=== PATIENT | male | born 1990 | race Caucasian/White ===

== ENCOUNTER 2024-03-15 07:24 | Emergency (ER) | payer BC, SELFPAY ==
[2024-03-15 07:26] VITALS: BP 136/88
--- NOTE | 2024-03-15 08:54 | ED.GENMED ---
History of Present Illness
General
Chief Complaint: Musculo-Skeletal Complaint
Time Seen by Provider: 03/15/24 07:43
Travel History
Have you had any contact with someone who has COVID-19?: No
Do you have any symptoms of coronavirus? Fever > 100 degrees, chills, cough, shortness of breath, sore throat, loss of taste or smell, muscle aches, or headache?: No
History of Present Illness
History of Present Illness:
33-year-old male with poorly controlled type 1 insulin-dependent diabetes presents to the emergency department for evaluation of burning discomfort to the left thigh and popliteal region ongoing for the past week. He states the skin is
hypersensitive to touch. Does report left-sided low back pain as well. Pain increases when ambulating but denies any leg weakness. No loss of bladder or bowel function. He does note that his insulin pump broke recently and he has been using
Lantus however his glucose has been generally uncontrolled. Last A1c was greater than 14
Past History
Past History
ED Past Medical History: Asthma, IDDM and Psychiatric
ED Past Surgical History: Other (Umbilical hernia repair, pilonidal cyst removal)
Social History
Tobacco: Vaping
Alcohol: Occasional
Drug: Marijuana
Personal: Single
Living: with family
Employment: Employed (Grocery store)
Family History
Family History: Diabetes
Review of Systems
Review of Systems
Allergies reviewed?: Yes
All Other Systems: ROS reviewed and negative except as documented in HPI and ROS
Phy Exam
Physical Exam
Physical Exam:
GEN: Well appearing, NAD, WDWN
HEENT: Oral mucosa moist, no scleral icterus
Cardiac: Regular rate
Lung: No respiratory distress, no tachypnea
MSK: No gross deformity or injuries. Mild lumbar paraspinous tenderness on the left
Skin: Good color, no pallor or jaundice, no rashes
Neuro: AO x3, moves all extremities freely. Bilateral lower extremity strength is 5 out of 5 in all perdue and symmetric, patellar reflexes 2+ bilaterally
Psych: Calm, cooperative
Course
Orders/Labs/Results
Orders:
Orders
03/15/24 09:07
Complete Blood Count/With Diff Urgent
Comprehensive Metabolic Panel Urgent
Urinalysis Reflex To Culture Urgent
Date Specimen was Collected: 03/15/24
Time Specimen was Collected: 08:57
03/15/24 09:54
Ketorolac [Toradol] 15 mg IV NOW STA
Abnormal Lab Results
03/15/24
09:07
MCH 31.3 H pg
(27.0-31.0)
MPV 11.2 H fL
(7.4-10.4)
Sodium 134 L mmol/L
(135-145)
Creatinine 0.6 L mg/dL
(0.7-1.3)
Glucose 333 H mg/dl
(70-99)
Total Protein 6.2 L g/dl
(6.3-8.2)
Urine Ketones Trace A
(Negative)
Urine Glucose 3+ A
(Negative)
03/15/24 09:07
03/15/24 09:07
Vital Signs
Initial and Last Documented VS:
Initial Vital Signs
Temp Pulse Resp BP Pulse Ox
98.5 F 85 18 136/88 100
03/15/24 07:26 03/15/24 07:26 03/15/24 07:26 03/15/24 07:26 03/15/24 07:26
Last Documented Vital Signs
Temp Pulse Resp BP Pulse Ox
98.5 F 72 18 123/85 99
03/15/24 07:26 03/15/24 10:43 03/15/24 10:43 03/15/24 10:43 03/15/24 10:43
MDM/Problems Addressed
MDM/Problems Addressed:
Patient's labs are reassuring, no evidence for DKA or HHS. He does have hyperglycemia secondary to medication noncompliance however compliance with his insulin regimen is encouraged. His symptoms are most likely indicative of lumbar radiculopathy,
doubt it is correlating to his diabetes given that it is not a distal peripheral neuropathy. Discussed supportive care and advised close primary care follow-up
*Critical Care Note
Total Time (30-74mins, 75-104mins- exclusive of procedures): Not Applicable
ED Attending Note
-
Portions of this chart may have been created with voice recognition software.� Occasional wrong word or��sound alike� substitutions may have occurred due to the inherent limitations of voice recognition software.
Discharge Plan
Departure
Patient Disposition: Home (Routine Discharge)
Date of Disposition: 03/15/24
Time of Disposition: 09:55
Patient with high blood pressure during this ER visit?: No
Discharge Problem:
Acute lumbar radiculopathy
Instructions: Radiculopathy (DC)
Prescriptions:
New
diclofenac sodium 75 mg tablet,delayed release (DR/EC)
75 mg PO BID Qty: 20 0RF
gabapentin 300 mg capsule
300 mg PO TID Qty: 30 0RF
No Action
insulin aspart U-100 [Novolog FlexPen U-100 Insulin] 100 unit/mL (3 mL) insulin pen
0 sliding scale dose SC .VIA PUMP
Referrals:
Giorgi Ayala DO [Family Provider] -
Interventions
Interventions:
*Risk Screen - Suicide Last Done: 03/15/24 07:26
*General Assessment Last Done: 03/15/24 07:26
*Neglect/Abuse Screening Last Done: 03/15/24 07:26
ED- Fall Risk Assessment Last Done: 03/15/24 08:02
*ED COVID-19 Vaccine History Last Done: 03/15/24 10:50
*Nursing Disposition Last Done: 03/15/24 10:50
ED-Musculoskeletal Assessment Last Done: 03/15/24 08:02
Discharge Date and Time
Discharge Date/Time: 03/15/24 10:50
Print Language: UPPER SORBIAN
[2024-03-15 09:16] LABS: % Basophils 0.8 % (0-2); % Eosinophils 1.6 % (0-6); % Immature Granulocytes 0.3 % (0-0.5); % Lymphocytes 27.7 % (20.5-51.1); % Monocytes 6.7 % (1.7-9.3); % Neutrophils 62.9 % (42.2-75.2); Absolute Basophils 0.1 10^3/uL (0-0.2); Absolute Eosinophils 0.1 10^3/uL (0-0.7); Absolute Monocytes 0.5 10^3/uL (0.1-0.6); Absolute Neutrophils 4.6 10^3/uL (1.4-6.5); Hemoglobin 15.8 g/dL (13.0-18.0); Mean Corp Hgb Conc. 36.7 g/dL (33.0-37.0); Mean Corpuscular Hgb 31.3 pg (27.0-31.0); Mean Corpuscular Volume 85.3 fL (80.0-94.0); Mean Platelet Volume 11.2 fL (7.4-10.4); Nucleated Red Blood Cells % 0 % (-); Platelet Count 196 10^3/uL (130-400); Red Blood Cell Count 5.04 10^6/uL (4.70-6.10); Red Cell Dist. Width 11.7 % (11.5-14.5); White Blood Cell Count 7.3 10^3/uL (4.8-10.8)
[2024-03-15 09:23] LABS: Urine Albumin Negative (Neg - Trace); Urine Bilirubin Negative (Negative); Urine Character Clear (Clear); Urine Color Yellow; Urine Glucose 3+ (Negative); Urine Ketone Trace (Negative); Urine Leukocyte Negative (Negative); Urine Nitrite Negative (Negative); Urine Occult Blood Negative (Negative); Urine Urobilinogen Negative (Neg - 1+)
[2024-03-15 09:42] LABS: ALT (SGPT) 33 U/L (0-50); AST (SGOT) 28 U/L (17-59); Albumin 3.9 g/dl (3.5-5.0); Alkaline Phosphatase 70 U/L (38-126); Blood Urea Nitrogen 12 mg/dl (9-20); Calcium 9.1 mg/dl (8.4-10.2); Carbon Dioxide 29 mmol/L (22-30); Chloride 98 mmol/L (98-107); Glucose 333 mg/dl (70-99); Potassium 4.6 mmol/L (3.5-5.1); Sodium 134 mmol/L (135-145); Total Bilirubin 0.6 mg/dl (0.2-1.3); Total Protein 6.2 g/dl (6.3-8.2); eGFR > 60.00
[2024-03-15 10:19] VITALS: BP 131/83
[2024-03-15] MEDS: TORADOL 15 MG IV (10:20)
[2024-03-15 10:43] VITALS: BP 123/85
== END 2024-03-15 10:50 | disposition home or self-care (01) ==
LOC: EMR 07:24
PROVIDERS: Physician Assistant; EMERGENCY PHYSICIAN Emergency Medicine; FAMILY PHYSICIAN Family Medicine
DX: M54.16 Radiculopathy, lumbar region (principal); E10.65 Type 1 diabetes mellitus with hyperglycemia; J45.909 Unspecified asthma, uncomplicated; F17.290 Nicotine dependence, other tobacco product, uncomplicated; Z83.3 Family history of diabetes mellitus; Z91.148 Patient's other noncompliance with medication regimen for other reason
CPT/HCPCS: 99283; 96374; 80053; 81003; 85025

== ENCOUNTER 2024-06-01 19:20 | Emergency (ER) | payer OTHER, SELFPAY ==
[2024-06-01 19:23] VITALS: BP 171/100
[2024-06-01 19:55] LABS: Urine Albumin Negative (Neg - Trace); Urine Bilirubin Negative (Negative); Urine Character Clear (Clear); Urine Color Yellow; Urine Glucose 3+ (Negative); Urine Ketone Negative (Negative); Urine Leukocyte Negative (Negative); Urine Nitrite Negative (Negative); Urine Occult Blood Negative (Negative); Urine Specific Gravity 1.015 (<1.030); Urine Urobilinogen Negative (Neg - 1+); Urine pH 6.5 (5.0-9.0)
--- NOTE | 2024-06-01 20:01 | ED.GENMED ---
History of Present Illness
General
Chief Complaint: Urinary Symptoms
Source: patient
Exam Limitations: none
Time Seen by Provider: 06/01/24 19:36
Nursing documentation reviewed up to this point in time: agreed with
History of Present Illness
History of Present Illness:
pt is a 33 y/o M with IDDM
poorly compliant
went to his paramedic instructor in [place] today who was not happy with pt's numbers
BG was high in the office
pt has not been taking his tresiba - sys it was in his hot car and he thinks it went bad so he really hasn't used it
he is supposed to use between 20-24 units and then use novolog for short acting but he ran out
he is supposed to get a new insulin pump
the paramedic instructor put on a dex com today
the bg went down to 300 but then he drank soda and it is up to 'high'
he says that about 6 mo ago he had a UTI
burning frequency
got an abx prescription but was noncompliant
taking one here and there
symptosm never really went away
was also tested for STI and doesn't think he had STI but isn't sure
pt says that the paramedic instructor develoed a new plan for his sugars
but in the meantime wante dhim to come to the ER because he was worried about the urinary symptoms getting worse and causing kidney problems
pt apparently was supposed to go to [place] but he waited there in the waiting room for a while and left and came here instead
pt has been here before with similar issues, noncompliance and high sugars
he has not had fever, chills, vomiting, abdomianl pain, diarrhea, weakness
Past History
Past History
ED Past Medical History: Asthma, IDDM and Psychiatric
ED Past Surgical History: Other (Umbilical hernia repair, pilonidal cyst removal)
Social History
Tobacco: Vaping
Alcohol: Occasional
Drug: Marijuana
Personal: Single
Living: with family
Employment: Employed (Grocery store)
Family History
Family History: Diabetes
Review of Systems
Review of Systems
Allergies reviewed?: Yes
All Other Systems: Not applicable
Phy Exam
Physical Exam
Physical Exam:
GENERAL: Alert , in no apparent distress,
EYE: pupils equal and reactive
NECK: Supple
ENT: o/p clr, mmm.
CARDIAC: Regular rate and rhythm .
LUNGS: Clear breath sounds bilaterally, no acute respiratory distress, no wheezes/rales/rhonchi
ABDOMEN: Soft, without focal tenderness, no r/g, no cvat, normal bowel sounds
: normal inspection, no rash, no susan
NEUROLOGICAL: Alert and oriented, no focal neuro deficits
SKIN: Warm and dry, skin intact.
MUSCULOSKELETAL: No edema, well perfused. neg melissa's sign
PSYCH: Anxious
Course
Orders/Labs/Results
Orders:
Orders
06/01/24 19:48
Urinalysis Reflex To Culture Urgent
Date Specimen was Collected: 06/01/24
Time Specimen was Collected: 19:47
Chlamydia/GC by PCR Urgent
MOLLY Source: U
Specimen Description:
Source:: URINE
Date Specimen was Collected: 06/01/24
Time Specimen was Collected: 19:47
Comment: ADD ON
06/01/24 19:57
Add On- LAB Urgent
Tests Added?: CHLAMYDIA/GONORRHEA URINE
0.9% Sodium Chloride 1000 ml [Nss] 1,000 ml IV BOLUS
06/01/24 20:06
BHB [B-Hydroxybutyrate] Urgent
Complete Blood Count/With Diff Urgent
Comprehensive Metabolic Panel Urgent
Venous Blood Gas Urgent
%Oxygen/Room Air: 21
06/01/24 20:43
0.9% Sodium Chloride 1000 ml [Nss] 1,000 ml IV BOLUS
06/01/24 22:06
Insulin Human Regular [Novolin R] 100 units .ROUTE .STK-MED ONE
Insulin Human Regular [Novolin R] 4 units SC NOW STA
Abnormal Lab Results
06/01/24 06/01/24 06/01/24
19:48 20:06 21:54
MCH 31.7 H pg
(27.0-31.0)
MCHC 37.3 H g/dL
(33.0-37.0)
MPV 12.1 H fL
(7.4-10.4)
VBG pCO2 49 H mmHg
(35-48)
VBG HCO3 29.7 H mmol/L
(22-27)
Sodium 131 L mmol/L
(135-145)
Chloride 94 L mmol/L
(98-107)
Creatinine 0.6 L mg/dL
(0.7-1.3)
Glucose 447 H mg/dl
(70-99)
Urine Glucose 3+ A
(Negative)
POC Glucose 266 H mg/dl
(70-99)
06/01/24 20:06
06/01/24 20:06
Vital Signs
Initial and Last Documented VS:
Initial Vital Signs
Temp Pulse Resp BP Pulse Ox
97.6 F 91 16 171/100 100
06/01/24 19:23 06/01/24 19:23 06/01/24 19:23 06/01/24 19:23 06/01/24 19:23
Last Documented Vital Signs
Temp Pulse Resp BP Pulse Ox
97.6 F 91 16 149/96 98
06/01/24 19:23 06/01/24 19:23 06/01/24 19:23 06/01/24 22:13 06/01/24 22:15
MDM/Problems Addressed
Differential Diagnosis Includes:
dka, hyperglcyemia, sti, uti
MDM/Problems Addressed:
[age]y/o M with IDDM
poorly compliant
currently not using insulin like he should
saw endocrinoogist today who is switching pt back to pump and changing insulin but pt was instructed to come to the ER to get urine checked
his bg was high earlier and came down to 300 but then went back up
he has been having c/o urinary frequency and dysuria intermittently x 6 mo after he was dx with UTI
pt was treated with unknown abx and he was thinnking that it never cleared up
he also goot tested for sti but doesn't know results
his bg was 447, AG is 6.5
bhb is normal
vbg normal
given 2 L NSS and rechecked bg 260
will give a dose of sub cutaneous regular insulin to last for the ngith since he will not be getting to pharmacy
d/w ed attending.
d/c home
ua neg
offered STI treatment but pt prefers to wait
*Critical Care Note
Total Time (30-74mins, 75-104mins- exclusive of procedures): Not Applicable
ED Attending Note
-
Portions of this chart may have been created with voice recognition software.� Occasional wrong word or��sound alike� substitutions may have occurred due to the inherent limitations of voice recognition software.
Discharge Plan
Departure
Patient Disposition: Home (Routine Discharge)
Date of Disposition: 06/01/24
Time of Disposition: 22:01
Patient with high blood pressure during this ER visit?: Yes
Covid-19: Not Applicable
Discharge Problem:
Noncompliance with diabetes treatment, Diabetes
Instructions: Type 1 diabetes, BLOOD PRESSURE
Prescriptions:
No Action
diclofenac sodium 75 mg tablet,delayed release (DR/EC)
75 mg PO BID Qty: 20 0RF
gabapentin 300 mg capsule
300 mg PO TID Qty: 30 0RF
Referrals:
NONE,* [Family Provider] -
Activity Restrictions/Additional Instructions:
YOU WERE GIVEN A DOSE OF REGULAR INSULIN TONIGHT THAT WILL LAST THROUGH MOST OF THE NIGHT
MAKE SURE NOT TO USE ANY INSULIN WIHTOUT CHECKING YOUR DEXCOM
YOU NEED TO BE MROE COMPLIANT WITH YOUR INSULIN
YOUR KIDNEY FUNCTION IS NORMAL
YOUR URINE HAS NO SIGN OF INFECTION
IF YOUR STD URINE COMES BACK POSITIVE, WE WILL CALL YOU
RETURN FOR ANY CONCERNS.
Interventions
Interventions:
*Risk Screen - Suicide Last Done: 06/01/24 19:23
*General Assessment Last Done: 06/01/24 19:23
*Neglect/Abuse Screening Last Done: 06/01/24 19:23
ED- Fall Risk Assessment Last Done: 06/01/24 20:12
*Nursing Disposition Last Done: 06/01/24 22:47
ED-Male Genitourinary Assessment Last Done: 06/01/24 20:12
Discharge Date and Time
Discharge Date/Time: 06/01/24 22:47
Print Language: BRAZILIAN
[2024-06-01] MEDS: NSS 1000 IV ×2 (20:07→20:46)
[2024-06-01 20:09] VITALS: BP 136/96
[2024-06-01 20:12] VITALS: BMI 25.9
[2024-06-01 20:15] LABS: Venous Blood Gas B.E. 3.6 mmol/L (-4 to +4); Venous Blood Gas HCO3 29.7 mmol/L (22-27); Venous Blood Gas O2 Sat % 82.8 %; Venous Blood Gas pCO2 49 mmHg (35-48); Venous Blood Gas pH 7.39 (7.32-7.43); Venous Blood Gas pO2 49 mmHg (30-50)
[2024-06-01 20:22] LABS: % Basophils 0.7 % (0-2); % Eosinophils 0.9 % (0-6); % Immature Granulocytes 0.3 % (0-0.5); % Lymphocytes 32.4 % (20.5-51.1); % Monocytes 7.6 % (1.7-9.3); % Neutrophils 58.1 % (42.2-75.2); Absolute Basophils 0.1 10^3/uL (0-0.2); Absolute Eosinophils 0.1 10^3/uL (0-0.7); Absolute Lymphocytes 2.3 10^3/uL (1.2-3.4); Absolute Monocytes 0.5 10^3/uL (0.1-0.6); Absolute Neutrophils 4.1 10^3/uL (1.4-6.5); Hematocrit 42.6 % (39.0-52.0); Hemoglobin 15.9 g/dL (13.0-18.0); Mean Corp Hgb Conc. 37.3 g/dL (33.0-37.0); Mean Corpuscular Hgb 31.7 pg (27.0-31.0); Mean Platelet Volume 12.1 fL (7.4-10.4); Nucleated Red Blood Cells % 0 % (-); Platelet Count 201 10^3/uL (130-400); Red Blood Cell Count 5.01 10^6/uL (4.70-6.10); Red Cell Dist. Width 11.5 % (11.5-14.5); White Blood Cell Count 6.9 10^3/uL (4.8-10.8)
[2024-06-01 20:36] LABS: ALT (SGPT) 28 U/L (0-50); AST (SGOT) 26 U/L (17-59); Albumin 4.6 g/dl (3.5-5.0); Alkaline Phosphatase 76 U/L (38-126); Blood Urea Nitrogen 17 mg/dl (9-20); Calcium 9.7 mg/dl (8.4-10.2); Carbon Dioxide 29 mmol/L (22-30); Chloride 94 mmol/L (98-107); Estimated Creatinine Clearance > 125 ml/min; Glucose 447 mg/dl (70-99); Potassium 4.2 mmol/L (3.5-5.1); Sodium 131 mmol/L (135-145); Total Bilirubin 0.7 mg/dl (0.2-1.3); Total Protein 6.7 g/dl (6.3-8.2); eGFR > 60.00
[2024-06-01 21:00] VITALS: BP 142/74
[2024-06-01 21:56] LABS: Glucose - Point of Care 266 mg/dl (70-99)
[2024-06-01 22:00] VITALS: BP 151/95
[2024-06-01] MEDS: NOVOLIN R 4 UNITS SC (22:09)
[2024-06-01 22:13] VITALS: BP 149/96
== END 2024-06-01 22:47 | disposition home or self-care (01) ==
LOC: EMR 19:20
PROVIDERS: Physician Assistant; EMERGENCY PHYSICIAN Emergency Medicine
DX: E11.65 Type 2 diabetes mellitus with hyperglycemia (principal); Z91.199 Patient's noncompliance with other medical treatment and regimen due to unspecified reason; R03.0 Elevated blood-pressure reading, without diagnosis of hypertension; F17.290 Nicotine dependence, other tobacco product, uncomplicated
CPT/HCPCS: 96360; 80053; 81003; 82010; 82805; 82962; 85025; 87491; 87591; 96361; 96372; 99284

== ENCOUNTER 2024-06-19 05:14 | Emergency (ER) | payer OTHER, SELFPAY ==
[2024-06-19 05:15] VITALS: BP 152/102
[2024-06-19 05:39] LABS: Glucose - Point of Care 326 mg/dl (70-99)
[2024-06-19 05:45] VITALS: BMI 24.9
[2024-06-19 05:50] LABS: COVID-19 Antigen Positive (Negative)
--- NOTE | 2024-06-19 06:16 | ED.GENMED ---
History of Present Illness
General
Chief Complaint: Blood Sugar Problem
Source: patient
Exam Limitations: none
Time Seen by Provider: 06/19/24 06:08
Nursing documentation reviewed up to this point in time: agreed with
History of Present Illness
History of Present Illness:
Patient with history of insulin-dependent diabetes, presents to ED secondary to persistently elevated blood sugar over the past 2 days, along with scratchy throat, body ache, and intermittent cough. Denies abdominal pain. Denies nausea, vomiting,
or diarrhea. Denies rash. Denies headache. Patient states that his father had been ill recently. Patient is concerned that he may be in DKA.
Past History
Past History
ED Past Medical History: Asthma, IDDM and Psychiatric
ED Past Surgical History: Other (Umbilical hernia repair, pilonidal cyst removal)
Social History
Tobacco: Vaping
Alcohol: Occasional
Drug: Marijuana
Personal: Single
Living: with family
Employment: Employed (Grocery store)
Family History
Family History: Diabetes
Review of Systems
Review of Systems
Allergies reviewed?: Yes
All Other Systems: ROS reviewed and negative except as documented in HPI and ROS
Constitutional: Reports chills
EENT: Reports sore throat and runny nose
Respiratory: Reports cough; Denies trouble breathing
Cardiac: Reports no symptoms
ABD/GI: Reports no symptoms; Denies vomiting or diarrhea
: Reports no symptoms
Musculoskeletal: Reports muscle pain
Skin: Reports no symptoms
Neurological: Reports no symptoms
Phy Exam
Physical Exam
Physical Exam:
Physical Exam
General: mild distress, not acutely ill. afebrile
Head: nc/at. eomi
Neck: supple. no meningeal signs. normal posterior pharynx
Heart: tachycardic, no murmur. equal radial pulses.
Lungs: no acute respiratory distress. clear bilaterally
Abdomen: normal bowel sounds. not tender.
Neuro: alert and oriented. no focal neurological deficits
Skin: no rash
Psychiatric: well kept. interactive and cooperative
Extremities: no edema. no calf tenderness.
Course
Orders/Labs/Results
Orders:
Orders
06/19/24 05:35
COVID-19 Antigen Urgent
Source: Nasal Swab
Influenza A+B Rapid Molecular Urgent
MOLLY Source: Nasal Swab
Specimen Description:
Date Specimen was Collected: 06/19/24
Time Specimen was Collected: 05:33
06/19/24 06:09
Bedside Glucose- Treatment Q1H
IV Insert/Care/Rem.- Treatment PRN
0.9% Sodium Chloride 1000 ml [Nss] 1,000 ml IV BOLUS
06/19/24 06:16
Acetaminophen [Tylenol] 650 mg PO NOW STA
Ketorolac [Toradol] 15 mg IV NOW STA
06/19/24 06:30
Acetone [B-Hydroxybutyrate] Urgent
Basic Metabolic Panel Q2H
Complete Blood Count/With Diff Urgent
Comprehensive Metabolic Panel Urgent
Magnesium Urgent
Venous Blood Gas Urgent
%Oxygen/Room Air: 99
06/19/24 07:13
Magnesium Oxide 500 mg PO NOW STA
06/19/24 07:14
0.9% Sodium Chloride 1000 ml [Nss] 1,000 ml IV BOLUS
Insulin Human Regular [Novolin R] 10 units IV NOW STA
Pantoprazole [Protonix IV] 40 mg IV NOW STA
Abnormal Lab Results
06/19/24 06/19/24 06/19/24
05:35 05:38 06:30
MCH 32.0 H pg
(27.0-31.0)
MCHC 37.3 H g/dL
(33.0-37.0)
RDW 11.1 L %
(11.5-14.5)
MPV 12.3 H fL
(7.4-10.4)
Absolute Lymphs (auto) 0.9 L 10^3/uL
(1.2-3.4)
Absolute Monos (auto) 0.8 H 10^3/uL
(0.1-0.6)
Lymphocytes % 15.5 L %
(20.5-51.1)
Monocytes % 14.1 H %
(1.7-9.3)
VBG pCO2 50 H mmHg
(35-48)
VBG HCO3 29.6 H mmol/L
(22-27)
Sodium 128 L mmol/L
(135-145)
Chloride 93 L mmol/L
(98-107)
Glucose 348 H mg/dl
(70-99)
Magnesium 1.5 L mg/dl
(1.6-2.3)
Total Protein 6.2 L g/dl
(6.3-8.2)
SARS-CoV-2 Antigen Positive A
(Negative)
POC Glucose 326 H mg/dl
(70-99)
06/19/24 06/19/24 06/19/24
08:04 09:27 11:02
MCH
MCHC
RDW
MPV
Absolute Lymphs (auto)
Absolute Monos (auto)
Lymphocytes %
Monocytes %
VBG pCO2
VBG HCO3
Sodium
Chloride
Glucose
Magnesium
Total Protein
SARS-CoV-2 Antigen
POC Glucose 294 H mg/dl 332 H mg/dl 230 H mg/dl
(70-99) (70-99) (70-99)
06/19/24 06:30
06/19/24 10:15
Vital Signs
Initial and Last Documented VS:
Initial Vital Signs
Temp Pulse Resp BP Pulse Ox
100.1 F 110 22 152/102 100
06/19/24 05:15 06/19/24 05:15 06/19/24 05:15 06/19/24 05:15 06/19/24 05:15
Last Documented Vital Signs
Temp Pulse Resp BP Pulse Ox
100.1 F 110 22 110/64 96
06/19/24 05:15 06/19/24 05:15 06/19/24 05:15 06/19/24 10:00 06/19/24 10:45
MDM/Problems Addressed
MDM/Problems Addressed:
COVID-19 positive. Patient reports significant improvement in symptoms after treatment. Blood work does not indicate DKA. Blood sugar improved after treatment. Discussed treatment options via Paxlovid with the patient. Patient given
prescription along with information about Paxlovid and side effects. Patient will determine whether or not he wants to take medication upon discharge. Advised continue hydration at home along with PCP follow-up as an outpatient.
*Critical Care Note
Total Time (30-74mins, 75-104mins- exclusive of procedures): Not Applicable
ED Attending Note
-
Portions of this chart may have been created with voice recognition software.� Occasional wrong word or��sound alike� substitutions may have occurred due to the inherent limitations of voice recognition software.
Discharge Plan
Departure
Patient Disposition: Home (Routine Discharge)
Date of Disposition: 06/19/24
Time of Disposition: 11:40
Patient with high blood pressure during this ER visit?: Yes
Discharge Problem:
COVID-19, Hyperglycemia
Instructions: COVID-19 ED, High Blood Sugar, Adult ED, Nirmatrelvir and Ritonavir
Prescriptions:
New
Paxlovid 300 mg (150 mg x 2)-100 mg tablets,dose pack
See Rx Instructions .ROUTE .COMPLEX Qty: 30 0RF
Rx Instructions:
take TWO 150 mg tablets of nirmatrelvir with ONE 100 mg tablet of ritonavir twice daily for 5 days
No Action
diclofenac sodium 75 mg tablet,delayed release (DR/EC)
75 mg PO BID Qty: 20 0RF
gabapentin 300 mg capsule
300 mg PO TID Qty: 30 0RF
Referrals:
Reji Lambert MD [Family Provider] -
Activity Restrictions/Additional Instructions:
As discussed, please follow-up with your primary care physician and/or clip loading machine adjuster with any further concerns. Please read provided literature regarding Paxlovid. Strongly consider taking Paxlovid, as it may lessen your symptoms as well as
duration.
Interventions
Interventions:
*Risk Screen - Suicide Last Done: 06/19/24 05:15
*General Assessment Last Done: 06/19/24 05:49
*Neglect/Abuse Screening Last Done: 06/19/24 05:15
ED- Fall Risk Assessment Last Done: 06/19/24 05:53
*ED COVID-19 Vaccine History Last Done: 06/19/24 05:45
*Nursing Disposition Last Done: 06/19/24 12:00
ED- Neurological Assessment Last Done: 06/19/24 05:43
ED- Pulmonary Assessment Last Done: 06/19/24 05:45
Discharge Date and Time
Discharge Date/Time: 06/19/24 12:02
Print Language: PASHTO
[2024-06-19] MEDS: NSS 1000 IV ×2 (06:35→08:15)
[2024-06-19] MEDS: TORADOL 15 MG IV (06:35)
[2024-06-19] MEDS: TYLENOL 650 MG PO (06:36)
[2024-06-19 06:51] VITALS: BP 128/78
[2024-06-19 06:58] LABS: % Basophils 0.7 % (0-2); % Eosinophils 0.5 % (0-6); % Immature Granulocytes 0.2 % (0-0.5); % Lymphocytes 15.5 % (20.5-51.1); % Monocytes 14.1 % (1.7-9.3); Absolute Lymphocytes 0.9 10^3/uL (1.2-3.4); Absolute Monocytes 0.8 10^3/uL (0.1-0.6); Absolute Neutrophils 4.1 10^3/uL (1.4-6.5); Hematocrit 41.5 % (39.0-52.0); Hemoglobin 15.5 g/dL (13.0-18.0); Mean Corp Hgb Conc. 37.3 g/dL (33.0-37.0); Mean Corpuscular Volume 85.7 fL (80.0-94.0); Mean Platelet Volume 12.3 fL (7.4-10.4); Nucleated Red Blood Cells % 0 % (-); Platelet Count 149 10^3/uL (130-400); Red Blood Cell Count 4.84 10^6/uL (4.70-6.10); Red Cell Dist. Width 11.1 % (11.5-14.5); White Blood Cell Count 5.9 10^3/uL (4.8-10.8)
[2024-06-19 07:01] VITALS: BP 131/73
[2024-06-19 07:08] LABS: Venous Blood Gas B.E. 3.3 mmol/L (-4 to +4); Venous Blood Gas HCO3 29.6 mmol/L (22-27); Venous Blood Gas O2 Sat % 80.8 %; Venous Blood Gas pCO2 50 mmHg (35-48); Venous Blood Gas pH 7.38 (7.32-7.43); Venous Blood Gas pO2 47 mmHg (30-50)
[2024-06-19 07:11] LABS: ALT (SGPT) 25 U/L (0-50); AST (SGOT) 22 U/L (17-59); Albumin 4.2 g/dl (3.5-5.0); Alkaline Phosphatase 75 U/L (38-126); Blood Urea Nitrogen 13 mg/dl (9-20); Calcium 9.4 mg/dl (8.4-10.2); Carbon Dioxide 27 mmol/L (22-30); Chloride 93 mmol/L (98-107); Estimated Creatinine Clearance 114 ml/min; Glucose 348 mg/dl (70-99); Magnesium 1.5 mg/dl (1.6-2.3); Potassium 4.6 mmol/L (3.5-5.1); Sodium 128 mmol/L (135-145); Total Bilirubin 0.8 mg/dl (0.2-1.3); Total Protein 6.2 g/dl (6.3-8.2); eGFR > 60.00
[2024-06-19 07:17] LABS: B-Hydroxybutyrate 0.24 mmol/L (0.02-0.27)
[2024-06-19 08:00] VITALS: BP 119/72
[2024-06-19 08:05] LABS: Glucose - Point of Care 294 mg/dl (70-99)
[2024-06-19] MEDS: PROTONIX IV 40 MG IV (08:09)
[2024-06-19] MEDS: NOVOLIN R 10 UNITS IV (08:09)
[2024-06-19] MEDS: MAGNESIUM OXIDE 500 MG PO (08:09)
[2024-06-19 09:00] VITALS: BP 98/51
[2024-06-19 09:28] LABS: Glucose - Point of Care 332 mg/dl (70-99)
[2024-06-19 10:00] VITALS: BP 110/64
[2024-06-19 11:04] LABS: Glucose - Point of Care 230 mg/dl (70-99)
== END 2024-06-19 12:02 | disposition home or self-care (01) ==
LOC: EMR 05:14
PROVIDERS: Emergency Medicine; EMERGENCY PHYSICIAN Emergency Medicine; FAMILY PHYSICIAN Internal Medicine Endocrinology, Diabetes & Metabolism
DX: U07.1 COVID-19 (principal); E11.65 Type 2 diabetes mellitus with hyperglycemia; F17.290 Nicotine dependence, other tobacco product, uncomplicated
CPT/HCPCS: 99284; 96374; 96375 ×2; 96361; 80048; 80053; 82010; 82805; 82962; 83735; 85025; 87502; 87811

== ENCOUNTER 2024-07-22 19:40 | Emergency (ER) | payer OTHER, SELFPAY ==
[2024-07-22 19:41] VITALS: BP 141/89
[2024-07-22 19:55] LABS: Glucose - Point of Care 260 mg/dl (70-99)
[2024-07-22 20:05] VITALS: BMI 25.6
--- NOTE | 2024-07-22 20:19 | ED.GENMED ---
History of Present Illness
General
Chief Complaint: Facial Problem
Source: patient
Exam Limitations: none
Time Seen by Provider: 07/22/24 20:11
Nursing documentation reviewed up to this point in time: agreed with
History of Present Illness
History of Present Illness:
34 yo male presents emergency department complaining of left facial numbness is about 5 PM. He denies any focal weakness. He states the left side his face feels heavy. He is diabetic with blood sugars in the 300s and poorly controlled. He has a
history of neuropathy.
Past History
Past History
ED Past Medical History: Asthma, IDDM and Psychiatric
ED Past Surgical History: Other (Umbilical hernia repair, pilonidal cyst removal)
Social History
Tobacco: Vaping
Alcohol: Occasional
Drug: Marijuana
Personal: Single
Living: with family
Employment: Employed (Grocery store)
Family History
Family History: Diabetes
Review of Systems
Review of Systems
Allergies reviewed?: Yes
All Other Systems: Not applicable
Constitutional: Reports no symptoms
EENT: Reports no symptoms
Respiratory: Reports no symptoms
Cardiac: Reports chest pain (While lifting weights)
ABD/GI: Reports no symptoms
: Reports no symptoms
Musculoskeletal: Reports no symptoms
Skin: Reports no symptoms
Neurological: Reports no symptoms
Endocrine: Reports no symptoms
Hematologic/Lymphatic: Reports no symptoms
Psychiatric: Reports no symptoms
Phy Exam
Physical Exam
Physical Exam:
Physical Exam
General: no apparent distress, not acutely ill
Neck: supple. no meningeal signs. normal posterior pharynx
Heart: s1/s2 regular rate and rhythm, no murmur. equal radial
pulses.
HEENT: Pupils equal round reactive to light, EOMI
Lungs: no acute respiratory distress. clear bilaterally
Abdomen: normal bowel sounds. not tender. no CVAT
Neuro: alert and oriented. no focal neurological deficits cranial nerves II through XII intact
Skin: no rash
Psychiatric: well kept. interactive and cooperative
Extremities: no edema. no calf tenderness. negative homans. good distal pulses
Course
Orders/Labs/Results
Orders:
Orders
07/22/24 19:47
Accucheck Once [Bedside Glucose Monitoring-ONCE] As Directed
07/22/24 20:07
Electrocardiogram (*1) Urgent
Reason for Study: Chest Pain
EKG- Treatment ONCE
07/22/24 20:08
Complete Blood Count/With Diff Urgent
Comprehensive Metabolic Panel Urgent
Troponin I Urgent
07/22/24 20:18
CT Head W/o Iv Contrast Urgent
Comment:
Reason For Exam: left facial numbness
Abnormal Lab Results
07/22/24 07/22/24
19:53 20:08
RBC 4.67 L 10^6/uL
(4.70-6.10)
Hct 38.6 L %
(39.0-52.0)
MPV 12.5 H fL
(7.4-10.4)
Chloride 96 L mmol/L
(98-107)
Glucose 229 H mg/dl
(70-99)
Total Protein 6.2 L g/dl
(6.3-8.2)
POC Glucose 260 H mg/dl
(70-99)
07/22/24 20:08
07/22/24 20:08
Vital Signs
Initial and Last Documented VS:
Initial Vital Signs
Temp Pulse Resp BP Pulse Ox
99.1 F 98 18 141/89 98
07/22/24 19:41 07/22/24 19:41 07/22/24 19:41 07/22/24 19:41 07/22/24 19:41
Last Documented Vital Signs
Temp Pulse Resp BP Pulse Ox
99.1 F 83 20 124/80 97
07/22/24 19:41 07/22/24 22:30 07/22/24 22:30 07/22/24 22:00 07/22/24 22:30
MDM/Problems Addressed
Differential Diagnosis Includes:
CVA, Boogie's palsy, neuropathy
MDM/Problems Addressed:
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 Limited intervention due to his diabetes. Discharged to follow-up with primary care and endocrinology. Do not suspect CVA.
Chronic conditions affecting care: DM
Acute Exacerbation and/or Progression of Chronic Illness: DM
*Radiology
Radiology exam reviewed: radiology read reviewed (CT head no acute findings)
*Pulse Oximetry
Patient hypoxic: no
*EKG
Interpreted by ED Provider?: Yes
EKG Intrepretation Date: 07/22/24
EKG Intrepretation Time: 20:54
Interpretation: abnormal
Comparison EKG: changes noted
Heart Rate: 79
Rate: normal
Rhythm: sinus
[place]: normal axis
Interval: normal interval
QRS Pattern: normal QRS
Ischemia: non-specific ST changes
*Bacteriologist Pharmaceutical Interpretation
Rate: Bacteriologist Pharmaceutical- N/A
*Critical Care Note
Total Time (30-74mins, 75-104mins- exclusive of procedures): Not Applicable
Patient Management
Social determinants of health affecting care: Living situation
Escalation/DeEscalation of care consider admission/obs:
Admit not indicated
ED Attending Note
-
Portions of this chart may have been created with voice recognition software.� Occasional wrong word or��sound alike� substitutions may have occurred due to the inherent limitations of voice recognition software.
Discharge Plan
Departure
Patient Disposition: Home (Routine Discharge)
Date of Disposition: 07/22/24
Time of Disposition: 22:49
Patient with high blood pressure during this ER visit?: Yes
Condition: Good
Discharge Problem:
Facial paresthesia
Instructions: Paresthesia (DC)
Prescriptions:
New
gabapentin 300 mg capsule
300 mg PO TID Qty: 30 0RF
No Action
diclofenac sodium 75 mg tablet,delayed release (DR/EC)
75 mg PO BID Qty: 20 0RF
gabapentin 300 mg capsule
300 mg PO TID Qty: 30 0RF
Paxlovid 300 mg (150 mg x 2)-100 mg tablets,dose pack
See Rx Instructions .ROUTE .COMPLEX Qty: 30 0RF
Rx Instructions:
take TWO 150 mg tablets of nirmatrelvir with ONE 100 mg tablet of ritonavir twice daily for 5 days
Referrals:
UNKNOWN - PT DOES,NOT KNOW [Family Provider] -
Interventions
Interventions:
*Risk Screen - Suicide Last Done: 07/22/24 19:45
*General Assessment Last Done: 07/22/24 19:45
*Neglect/Abuse Screening Last Done: 07/22/24 19:45
ED- Fall Risk Assessment Last Done: 07/22/24 21:18
ED- Neurological Assessment Last Done: 07/22/24 21:19
ED-Skin Assessment Last Done: 07/22/24 21:18
Discharge Date and Time
Print Language: CITIZ[place]
[2024-07-22 20:31] LABS: ALT (SGPT) 25 U/L (0-50); AST (SGOT) 27 U/L (17-59); Albumin 4.2 g/dl (3.5-5.0); Alkaline Phosphatase 63 U/L (38-126); Blood Urea Nitrogen 11 mg/dl (9-20); Calcium 9.4 mg/dl (8.4-10.2); Carbon Dioxide 29 mmol/L (22-30); Chloride 96 mmol/L (98-107); Estimated Creatinine Clearance > 125 ml/min; Glucose 229 mg/dl (70-99); Sodium 136 mmol/L (135-145); Total Bilirubin 0.7 mg/dl (0.2-1.3); Total Protein 6.2 g/dl (6.3-8.2); eGFR > 60.00
[2024-07-22 20:42] LABS: Troponin I < 0.012 ng/ml
[2024-07-22 21:00] VITALS: BP 121/83
[2024-07-22 21:31] LABS: % Eosinophils 1.2 % (0-6); % Immature Granulocytes 0.3 % (0-0.5); % Lymphocytes 33.8 % (20.5-51.1); % Monocytes 6.1 % (1.7-9.3); % Neutrophils 57.6 % (42.2-75.2); Absolute Basophils 0.1 10^3/uL (0-0.2); Absolute Eosinophils 0.1 10^3/uL (0-0.7); Absolute Lymphocytes 2.3 10^3/uL (1.2-3.4); Absolute Monocytes 0.4 10^3/uL (0.1-0.6); Absolute Neutrophils 3.8 10^3/uL (1.4-6.5); Hematocrit 38.6 % (39.0-52.0); Hemoglobin 14.3 g/dL (13.0-18.0); Mean Corpuscular Hgb 30.6 pg (27.0-31.0); Mean Corpuscular Volume 82.7 fL (80.0-94.0); Mean Platelet Volume 12.5 fL (7.4-10.4); Nucleated Red Blood Cells % 0 % (-); Platelet Count 175 10^3/uL (130-400); Red Blood Cell Count 4.67 10^6/uL (4.70-6.10); Red Cell Dist. Width 11.9 % (11.5-14.5); White Blood Cell Count 6.7 10^3/uL (4.8-10.8)
[2024-07-22 22:00] VITALS: BP 124/80
[2024-07-22 23:00] VITALS: BP 112/82
== END 2024-07-22 23:06 | disposition home or self-care (01) ==
LOC: EMR 19:40
PROVIDERS: EMERGENCY PHYSICIAN Emergency Medicine
DX: R20.2 Paresthesia of skin (principal); R03.0 Elevated blood-pressure reading, without diagnosis of hypertension; F17.290 Nicotine dependence, other tobacco product, uncomplicated; E11.65 Type 2 diabetes mellitus with hyperglycemia
CPT/HCPCS: 99285; 70450; 80053; 82962; 84484; 85025; 93005

== ENCOUNTER 2024-09-02 22:43 | Emergency (ER) | payer OTHER, SELFPAY ==
[2024-09-02 22:50] VITALS: BP 153/96
[2024-09-02 22:56] VITALS: BP 159/104
[2024-09-02 23:00] VITALS: BP 151/92
[2024-09-02 23:10] VITALS: BMI 26.2
[2024-09-02 23:16] LABS: % Basophils 0.8 % (0-2); % Eosinophils 2.1 % (0-6); % Immature Granulocytes 0.3 % (0-0.5); % Monocytes 7.2 % (1.7-9.3); % Neutrophils 43.6 % (42.2-75.2); Absolute Basophils 0.1 10^3/uL (0-0.2); Absolute Eosinophils 0.2 10^3/uL (0-0.7); Absolute Lymphocytes 3.4 10^3/uL (1.2-3.4); Absolute Monocytes 0.5 10^3/uL (0.1-0.6); Absolute Neutrophils 3.3 10^3/uL (1.4-6.5); Hematocrit 43.2 % (39.0-52.0); Mean Corpuscular Hgb 31.5 pg (27.0-31.0); Mean Platelet Volume 12.3 fL (7.4-10.4); Nucleated Red Blood Cells % 0 % (-); Platelet Count 203 10^3/uL (130-400); Red Blood Cell Count 5.08 10^6/uL (4.70-6.10); Red Cell Dist. Width 11.2 % (11.5-14.5); White Blood Cell Count 7.5 10^3/uL (4.8-10.8)
[2024-09-02 23:20] LABS: INR 1.04; PT 13.4 Sec (11.4-14.6)
[2024-09-02 23:21] LABS: APTT 28.6 Sec (23.4-35.0)
--- NOTE | 2024-09-02 23:27 | ED.GENMED ---
History of Present Illness
<RUMA Laughlin - Last Filed: 09/03/24 04:42>
General
Chief Complaint: Chest Pain
Source: patient
Exam Limitations: none
Time Seen by Provider: 09/02/24 22:55
Nursing documentation reviewed up to this point in time: agreed with
History of Present Illness
History of Present Illness:
Patient is a 34yo M w/ PMH of DM type 1 x20y who presents w/ chest pain, L arm pain, and R leg pain x12hrs. Started w/ R leg pain around 10am. Pain is located above the knee, medially. Has been on/off throughout the day, currently feels sore.
Reports he noticed some swelling in R lower leg the day before. On/off L arm pain started around noon and radiates from wrist up to armpit. Pt denies that either pain could be from injury or overuse. 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 Chest
pain started around 5pm. Was on/off and became constant. Describes sharp, stabbing pain in L chest rated 7/10. Denies pain is affected by breathing. Reports dizziness unlike anything he's felt before while smoking around 5pm. Admits to some
dizziness while walking into triage. Also admits to SOB and fatigue that started while coming into ER. Feels he can not get a full deep breath. Admits to extremity numbness/tingling but notes hx of neuropathy. Pt describes the sensation of
palpitations has been occurring occasionally for the past 6 months. Admits to increased feet cramping in the past month. Reports seeing a weight control lecturer for abnormal EKG. States he did stress testing which was normal bu did not follow up.
Past History
<RUMA Laughlin - Last Filed: 09/03/24 04:42>
Past History
ED Past Medical History: Asthma, IDDM and Psychiatric
ED Past Surgical History: Other (Umbilical hernia repair, pilonidal cyst removal)
Social History
Tobacco: Vaping
Alcohol: Occasional
Drug: Marijuana
Personal: Single
Living: with family
Employment: Employed (Grocery store)
Family History
Family History: Diabetes
Review of Systems
<ST QianND - Last Filed: 09/03/24 04:42>
Review of Systems
Constitutional: Reports fatigue; Denies fever or chills
Respiratory: Reports trouble breathing; Denies cough
Cardiac: Reports chest pain and palpitations
ABD/GI: Reports constipated; Denies abdominal pain, nausea, vomiting or diarrhea
: Denies dysuria
Musculoskeletal: Reports muscle pain and edema; Denies joint pain
Neurological: Reports dizzy, weakness and numbness; Denies headache
Phy Exam
<RUMA Laughlin - Last Filed: 09/03/24 04:42>
General Physical Exam
General Presentation: mild distress
General age: appears stated age
General Skin: warm and dry
General Habitus: normal
General Mental: alert
Cardiovascular Exam
Cardiovascular Exam: regular rate/rhythm, no gallop and no murmur
Pulmonary Exam
Pulmonary Exam: lungs clear, no respiratory distress, no rales, no crackles, no rhonchi and no wheezing
Neurological Exam
Neurological Exam: alert, oriented x3, no motor deficits and speech normal
Scores
<ST QianND - Last Filed: 09/03/24 04:42>
Heart Score for Chest Pain Patients
Heart Score for Chest Pain Patients: 3
Heart Score Risk: 2.5% MACE over next 6 weeks
<Giorgi Maria DO - Last Filed: 09/03/24 04:06>
Heart Score for Chest Pain Patients
STEMI patient?: No
History: Slightly or Non-Suspicious
ECG: Nonspecific Repolarization
Age: </= 45 years
Risk Factors: >/= 3 Risk Factors or History of CAD
Troponin: </= Normal Limit
Heart Score for Chest Pain Patients: 3
Heart Score Risk: 2.5% MACE over next 6 weeks
Course
<Letty Rivera, [facility] [[email or web address]] - Last Filed: 09/03/24 04:42>
Orders/Labs/Results
Orders:
Orders
09/02/24 22:44
EKG [Electrocardiogram (*1)] Urgent
Reason for Study: Chest Pain
EKG- Treatment ONCE
09/02/24 23:03
B-Hydroxybutyrate Urgent
Complete Blood Count/With Diff Urgent
Comprehensive Metabolic Panel Urgent
Magnesium Urgent
NT-proBNP Urgent
PTT Urgent
Prothrombin Time Urgent
TSH Urgent
Troponin I Urgent
09/02/24 23:49
Add On- LAB Urgent
Tests Added?: beta hydroxybutrate
09/03/24 00:[address] [CT Chest Pe Study] Urgent
Comment:
Reason For Exam: chest pain, SOB
09/03/24 02:36
Troponin I Urgent
Abnormal Lab Results
09/02/24
23:03
MCH 31.5 H pg
(27.0-31.0)
RDW 11.2 L %
(11.5-14.5)
MPV 12.3 H fL
(7.4-10.4)
Chloride 97 L mmol/L
(98-107)
Glucose 252 H mg/dl
(70-99)
09/02/24 23:03
09/02/24 23:03
Vital Signs
Initial and Last Documented VS:
Initial Vital Signs
Temp Pulse Resp BP Pulse Ox
98 F 79 20 153/96 100
09/02/24 22:50 09/02/24 22:50 09/02/24 22:50 09/02/24 22:50 09/02/24 22:50
Last Documented Vital Signs
Temp Pulse Resp BP Pulse Ox
98 F 81 17 128/89 98
09/02/24 22:50 09/03/24 04:00 09/03/24 04:00 09/03/24 04:00 09/03/24 04:00
<Giorgi Maria, DO - Last Filed: 09/03/24 04:06>
Orders/Labs/Results
Orders:
Orders
09/02/24 22:44
EKG [Electrocardiogram (*1)] Urgent
Reason for Study: Chest Pain
EKG- Treatment ONCE
09/02/24 23:03
B-Hydroxybutyrate Urgent
Complete Blood Count/With Diff Urgent
Comprehensive Metabolic Panel Urgent
Magnesium Urgent
NT-proBNP Urgent
PTT Urgent
Prothrombin Time Urgent
TSH Urgent
Troponin I Urgent
09/02/24 23:49
Add On- LAB Urgent
Tests Added?: beta hydroxybutrate
09/03/24 00:[address] [CT Chest Pe Study] Urgent
Comment:
Reason For Exam: chest pain, SOB
09/03/24 02:36
Troponin I Urgent
Abnormal Lab Results
09/02/24
23:03
MCH 31.5 H pg
(27.0-31.0)
RDW 11.2 L %
(11.5-14.5)
MPV 12.3 H fL
(7.4-10.4)
Chloride 97 L mmol/L
(98-107)
Glucose 252 H mg/dl
(70-99)
09/02/24 23:03
09/02/24 23:03
Vital Signs
Initial and Last Documented VS:
Initial Vital Signs
Temp Pulse Resp BP Pulse Ox
98 F 79 20 153/96 100
09/02/24 22:50 09/02/24 22:50 09/02/24 22:50 09/02/24 22:50 09/02/24 22:50
Last Documented Vital Signs
Temp Pulse Resp BP Pulse Ox
98 F 81 17 128/89 98
09/02/24 22:50 09/03/24 04:00 09/03/24 04:00 09/03/24 04:00 09/03/24 04:00
<Giorgi Maria DO - Last Filed: 09/03/24 04:06>
*Critical Care Note
Total Time (30-74mins, 75-104mins- exclusive of procedures): Not Applicable
<DO Katty Painting Last Filed: 09/03/24 04:06>
Update Note
Update Note:
CTA chest PE
Comparison: None
IMPRESSION:
Technically diagnostically exam
No evidence for pulmonary embolism
No appreciable acute thoracic aortic pathology on this non-ECG gated exam
Normal size heart
Pericardium appears normal
Lungs clear
No evidence for pneumonia or pulmonary edema
No pleural effusion or pneumothorax
No acute findings in the visualized upper abdomen
Cholelithiasis
Hepatic cyst
Report faxed directly to ER at 12:59 AM ET
ED Attending Note
<RUMA Laughlin - Last Filed: 09/03/24 04:42>
-
Portions of this chart may have been created with voice recognition software.� Occasional wrong word or��sound alike� substitutions may have occurred due to the inherent limitations of voice recognition software.
<DO Katty Painting Last Filed: 09/03/24 04:06>
ED Attending Note
Patient seen and examined by attending physician: Yes
I performed the substantive portion of visit, reviewed & personally made and approve the management plan that is documented in note by myself or GLORIA.: Yes
ED Attending Note:
Pleasant 34-year-old male presents to the emergency department with chest pain that began around 5 PM. He also reports left arm pain and shortness of breath. Patient is an insulin-dependent diabetic. He does have hypertension. He has diabetic
neuropathy he smokes at least a pack per day plus he vapes. He is a former alcoholic. Patient states that he has been Dr. Guillory for cardiology due to 'an abnormal EKG '. He states that he had further testing no confirmed diagnosis. He
states he has not followed up since. Patient was seen in conjunction with the PA student. I have reviewed and agree with the history and treatment plan presented. On my independent physical exam, patient is awake, alert, and oriented x3 heart is
regular rate regular rhythm. Lungs clear to auscultation bilaterally without wheezes rales or rhonchi present. Abdomen soft nontender nondistended no hepatosplenomegaly. Moves all 4 extremities dry. Multiple tattoos. Insulin pump in place
Discharge Plan
Departure
Patient Disposition: Home (Routine Discharge)
Date of Disposition: 09/03/24
Time of Disposition: 04:03
Patient with high blood pressure during this ER visit?: Yes
Condition: Fair
Discharge Problem:
Chest pain
Instructions: Chest Pain [facility] Follow Up, BLOOD PRESSURE
Prescriptions:
No Action
diclofenac sodium 75 mg tablet,delayed release (DR/EC)
75 mg PO BID Qty: 20 0RF
gabapentin 300 mg capsule
300 mg PO TID Qty: 30 0RF
Paxlovid 300 mg (150 mg x 2)-100 mg tablets,dose pack
See Rx Instructions .ROUTE .COMPLEX Qty: 30 0RF
Rx Instructions:
take TWO 150 mg tablets of nirmatrelvir with ONE 100 mg tablet of ritonavir twice daily for 5 days
gabapentin 300 mg capsule
300 mg PO TID Qty: 30 0RF
Referrals:
[facility] [Provider Group] - Next open appointment
UNKNOWN - PT DOES,NOT KNOW [Family Provider] -
Activity Restrictions/Additional Instructions:
It was a pleasure meeting you and taking part in your care. We hope for your continued healing and wellness.
Please read discharge instructions in their entirety. However, they are for general education and may not describe your exact diagnosis at discharge. Information on your ER visit and medical conditions were discussed with you along with appropriate
follow up information...
If indicated, please take your medications as instructed and indicated on discharge paperwork.
Please schedule a follow up appointment as directed. Call to schedule an appointment
Please return to the emergency department with ANY change in, persisting, or worsening of symptoms. If any of your symptoms do not improve, or persist, or become more severe within 6-12 hours, please return to the emergency department for further
care.
Please return to the emergency department if you develop a headache, neck pain/stiffness, fever greater than 100.4F, chest pain, shortness of breath, persistent nausea, vomiting, slurred speech, difficulty walking, numbness/tingling, weakness, signs
of infection or any other symptoms that are worrisome to you.
If you have any questions or concerns please do not hesitate to call the Hospital at or E-mail me directly at [email or web address]
Interventions
Interventions:
*Risk Screen - Suicide Last Done: 09/02/24 22:50
*General Assessment Last Done: 09/02/24 22:50
*Neglect/Abuse Screening Last Done: 09/02/24 22:50
ED- Fall Risk Assessment Last Done: 09/02/24 23:12
*ED COVID-19 Vaccine History Last Done: 09/02/24 23:12
*Nursing Disposition Last Done: 09/03/24 04:20
ED- Cardiac Assessment Last Done: 09/02/24 23:12
Discharge Date and Time
Discharge Date/Time: 09/03/24 04:21
Print Language: SURINAMESE
[2024-09-02 23:34] LABS: NT-proBNP < 20.0 pg/ml; Troponin I < 0.012 ng/ml
[2024-09-02 23:36] LABS: ALT (SGPT) 27 U/L (0-50); AST (SGOT) 26 U/L (17-59); Albumin 4.5 g/dl (3.5-5.0); Alkaline Phosphatase 69 U/L (38-126); Blood Urea Nitrogen 13 mg/dl (9-20); Calcium 9.8 mg/dl (8.4-10.2); Carbon Dioxide 30 mmol/L (22-30); Chloride 97 mmol/L (98-107); Estimated Creatinine Clearance > 125 ml/min; Glucose 252 mg/dl (70-99); Magnesium 1.7 mg/dl (1.6-2.3); Potassium 4.4 mmol/L (3.5-5.1); Sodium 137 mmol/L (135-145); Total Bilirubin 0.5 mg/dl (0.2-1.3); Total Protein 6.8 g/dl (6.3-8.2); eGFR > 60.00
[2024-09-03] VITALS: BP 124/85
[2024-09-03 00:06] LABS: TSH 3.29 uIU/ml (0.47-4.68)
[2024-09-03 00:12] LABS: B-Hydroxybutyrate 0.11 mmol/L (0.02-0.27)
[2024-09-03 02:34] VITALS: BP 131/91
[2024-09-03 03:00] VITALS: BP 136/95
[2024-09-03 03:33] LABS: Troponin I < 0.012 ng/ml
--- NOTE | 2024-09-03 03:37 | EDRN ---
Patient is sleeping at this time, will continue to monitor
[2024-09-03 04:00] VITALS: BP 128/89
== END 2024-09-03 04:21 | disposition home or self-care (01) ==
LOC: EMR 22:43
PROVIDERS: EMERGENCY PHYSICIAN Student in an Organized Health Care Education/Training Program
DX: R07.9 Chest pain, unspecified (principal); E10.40 Type 1 diabetes mellitus with diabetic neuropathy, unspecified; F17.210 Nicotine dependence, cigarettes, uncomplicated; F17.290 Nicotine dependence, other tobacco product, uncomplicated; I10 Essential (primary) hypertension; Z79.4 Long term (current) use of insulin; Z96.41 Presence of insulin pump (external) (internal)
CPT/HCPCS: 99284; 71275; 80053; 82010; 83735; 83880; 84443; 84484; 85025; 85610; 85730; 93005; Q9967

== ENCOUNTER → 2024-12-31 14:54 | Outpatient (REF) | payer OTHER, SELFPAY | LOC: HWRCS 14:54 | PROVIDERS: ATTENDING PHYSICIAN Internal Medicine Cardiovascular Disease; FAMILY PHYSICIAN Family Medicine | DX: R07.2 Precordial pain (principal); R06.02 Shortness of breath | CPT/HCPCS: 93306 ==

== ENCOUNTER → 2025-01-04 10:42 | Outpatient (REF) | payer OTHER, SELFPAY | LOC: RCS 10:42 | PROVIDERS: ATTENDING PHYSICIAN Internal Medicine Cardiovascular Disease; FAMILY PHYSICIAN Family Medicine | DX: R07.2 Precordial pain (principal); R06.02 Shortness of breath | CPT/HCPCS: 93017 ==

== ENCOUNTER 2025-08-27 19:33 | Emergency (ER) | payer OTHER, SELFPAY ==
[2025-08-27 19:35] VITALS: BP 177/113
[2025-08-27 19:42] LABS: Glucose - Point of Care 259 mg/dl (70-99)
[2025-08-27 19:53] LABS: Hematocrit 41.2 % (39.0-52.0); Hemoglobin 15.0 g/dL (13.0-18.0); Mean Corp Hgb Conc. 36.4 g/dL (33.0-37.0); Mean Corpuscular Volume 86.9 fL (80.0-94.0); Nucleated Red Blood Cells % 0 % (-); Platelet Count 206 10^3/uL (130-400); Red Cell Dist. Width 11.6 % (11.5-14.5)
[2025-08-27 20:16] LABS: ALT (SGPT) 53 U/L (0-50); AST (SGOT) 79 U/L (17-59); Albumin 4.4 g/dl (3.5-5.0); Alkaline Phosphatase 66 U/L (38-126); Blood Urea Nitrogen 15 mg/dl (9-20); Calcium 9.6 mg/dl (8.4-10.2); Carbon Dioxide 31 mmol/L (22-30); Chloride 98 mmol/L (98-107); Glucose 255 mg/dl (70-99); Potassium 4.2 mmol/L (3.5-5.1); Sodium 135 mmol/L (135-145); Total Protein 6.5 g/dl (6.3-8.2); eGFR > 60.00
[2025-08-27 21:10] VITALS: BP 164/109
[2025-08-27 21:30] LABS: Urine Character Clear (Clear)
--- NOTE | 2025-08-27 21:31 | ED.GENMED ---
History of Present Illness
<Siddharth Sutton MD, Resident - Last Filed: 08/28/25 00:16>
General
Chief Complaint: Flank Pain
Source: patient
Time Seen by Provider: 08/27/25 20:59
History of Present Illness
History of Present Illness:
Patient is a 35-year-old male with PMH of type 1 diabetes, DKA, renal calculi, alcohol abuse, opioid abuse, ADHD, and neuropathy who presents to the [facility] with 2 weeks of back pain. The pain was initially intermittent and mild in intensity,
with progression to current 8/10 intensity, constant back pain. Associated polydipsia, dysuria, fatigue, and decreased urinary frequency over the last 2 weeks. Developed chills tonight. Denies fever, N/V/D, or vision changes.
Past History
<Siddharth Sutton MD, Resident - Last Filed: 08/28/25 00:16>
Past History
ED Past Medical History: Asthma, IDDM, Psychiatric and Other (DKA)
ED Past Surgical History: Other (Umbilical hernia repair, pilonidal cyst removal)
Social History
Tobacco: Vaping
Alcohol: Occasional
Drug: Marijuana and IVDA
Personal: Single
Living: with family
Employment: Employed (Grocery store)
Family History
Family History: Diabetes
Review of Systems
<Siddharth Sutton MD, Resident - Last Filed: 08/28/25 00:16>
Review of Systems
Constitutional: Reports fatigue and chills; Denies fever
Respiratory: Reports trouble breathing
Cardiac: Reports chest pain
ABD/GI: Reports constipated (Chronic); Denies abdominal pain, nausea, vomiting or diarrhea
: Reports dysuria and other (Decreased urinary frequency)
Neurological: Denies weakness or numbness
Endocrine: Reports polydipsia; Denies polyuria
Phy Exam
<Siddharth Sutton MD, Resident - Last Filed: 08/28/25 00:16>
Physical Exam
Physical Exam:
General: NAD. Conversant.
MSK: Back non-TTP, without deformity, erythema, or swelling.
CV: RRR. S1, S2 noted. No M/R/G. No LE edema.
Pulm: CTAB. No wheezes or crackles. No cyanosis.
GI: Soft, nontender. Nondistended. No masses.
: No CVA tenderness.
Neuro: A&O x 3. No focal deficits. CN II through XII grossly intact. PERRLA.
Course
<Siddharth Sutton MD, Resident - Last Filed: 08/28/25 00:16>
Orders/Labs/Results
Orders:
Orders
08/27/25 19:44
Alcohol Urgent
Complete Blood Count/With Diff Urgent
Comprehensive Metabolic Panel Urgent
Lipase Urgent
Comment: ADD ON
08/27/25 21:24
CT Abd/pel Without Iv Or Oral Urgent
Comment:
Reason For Exam: flank pain
08/27/25 21:25
Urinalysis Reflex To Culture Urgent
Date Specimen was Collected: 08/27/25
Time Specimen was Collected: 21:25
Urine Drug Abuse Screen Urgent
Date Specimen was Collected: 08/27/25
Time Specimen was Collected: 21:25
08/27/25 21:28
Acetaminophen [Tylenol] 650 mg PO NOW STA
08/27/25 21:29
0.9% Sodium Chloride 1000 ml [Nss] 1,000 ml IV BOLUS
08/27/25 21:38
Electrocardiogram (*1) Urgent
Reason for Study: Chest Pain
08/27/25 21:51
Troponin I Urgent
08/27/25 21:55
Add On- LAB Urgent
Tests Added?: lipase
08/27/25 21:59
Add On - Microbiology Urgent
Tests Added?: urine drug abuse and urine alcohol quantitative
Abnormal Lab Results
08/27/25 08/27/25 08/27/25
19:41 19:44 21:25
MCH 31.6 H pg
(27.0-31.0)
MPV 12.1 H fL
(7.4-10.4)
Carbon Dioxide 31 H mmol/L
(22-30)
Glucose 255 H mg/dl
(70-99)
AST 79 H U/L
(17-59)
ALT 53 H U/L
(0-50)
Urine Glucose 4+ A
(Negative)
POC Glucose 259 H mg/dl
(70-99)
08/27/25
22:04
MCH
MPV
Carbon Dioxide
Glucose
AST
ALT
Urine Glucose
POC Glucose 106 H mg/dl
(70-99)
08/27/25 19:44
08/27/25 19:44
Vital Signs
Initial and Last Documented VS:
Initial Vital Signs
Temp Pulse Resp BP Pulse Ox
98.4 F 109 16 177/113 100
08/27/25 19:35 08/27/25 19:35 08/27/25 19:35 08/27/25 19:35 08/27/25 19:35
Last Documented Vital Signs
Temp Pulse Resp BP Pulse Ox
98.4 F 98 16 149/90 97
08/27/25 19:35 08/27/25 22:45 08/27/25 19:35 08/27/25 22:00 08/27/25 22:45
<Alphonse Verdugo, DO - Last Filed: 08/27/25 23:04>
Orders/Labs/Results
Orders:
Orders
08/27/25 19:44
Alcohol Urgent
Complete Blood Count/With Diff Urgent
Comprehensive Metabolic Panel Urgent
Lipase Urgent
Comment: ADD ON
08/27/25 21:24
CT Abd/pel Without Iv Or Oral Urgent
Comment:
Reason For Exam: flank pain
08/27/25 21:25
Urinalysis Reflex To Culture Urgent
Date Specimen was Collected: 08/27/25
Time Specimen was Collected: 21:25
Urine Drug Abuse Screen Urgent
Date Specimen was Collected: 08/27/25
Time Specimen was Collected: 21:25
08/27/25 21:28
Acetaminophen [Tylenol] 650 mg PO NOW STA
08/27/25 21:29
0.9% Sodium Chloride 1000 ml [Nss] 1,000 ml IV BOLUS
08/27/25 21:38
Electrocardiogram (*1) Urgent
Reason for Study: Chest Pain
08/27/25 21:51
Troponin I Urgent
08/27/25 21:55
Add On- LAB Urgent
Tests Added?: lipase
08/27/25 21:59
Add On - Microbiology Urgent
Tests Added?: urine drug abuse and urine alcohol quantitative
Abnormal Lab Results
08/27/25 08/27/25 08/27/25
19:41 19:44 21:25
MCH 31.6 H pg
(27.0-31.0)
MPV 12.1 H fL
(7.4-10.4)
Carbon Dioxide 31 H mmol/L
(22-30)
Glucose 255 H mg/dl
(70-99)
AST 79 H U/L
(17-59)
ALT 53 H U/L
(0-50)
Urine Glucose 4+ A
(Negative)
POC Glucose 259 H mg/dl
(70-99)
08/27/25
22:04
MCH
MPV
Carbon Dioxide
Glucose
AST
ALT
Urine Glucose
POC Glucose 106 H mg/dl
(70-99)
08/27/25 19:44
08/27/25 19:44
Vital Signs
Initial and Last Documented VS:
Initial Vital Signs
Temp Pulse Resp BP Pulse Ox
98.4 F 109 16 177/113 100
08/27/25 19:35 08/27/25 19:35 08/27/25 19:35 08/27/25 19:35 08/27/25 19:35
Last Documented Vital Signs
Temp Pulse Resp BP Pulse Ox
98.4 F 98 16 149/90 97
08/27/25 19:35 08/27/25 22:45 08/27/25 19:35 08/27/25 22:00 08/27/25 22:45
<Siddharth Sutton MD, Resident - Last Filed: 08/28/25 00:16>
MDM/Problems Addressed
Differential Diagnosis Includes:
Pancreatitis
Pyelonephritis
DKA
HHS
Symptomatic hyperglycemia
Cystitis
Pericarditis
Gastric ulcer
Aortic dissection
Muscle strain
Fracture
MDM/Problems Addressed:
Assessment: Patient is a 35-year-old male with PMH of type 1 diabetes, DKA, and JOSE who presents to the [facility] with 2 weeks of progressive back pain, polydipsia, fatigue, dysuria, and decreased urinary frequency, as well as onset of chills,
chest pain, and shortness of breath earlier this evening. On presentation, patient was hypertensive (177/113) and tachycardic (109) with an otherwise unremarkable physical exam. Slightly elevated transaminases, hyperglycemic (255). Lipase, UDS,
EtOH unremarkable. UA 4+ glucose, otherwise negative. Workup ongoing.
Plan:
#Back pain
EKG
Labs: CBC, CMP, lipase, troponin, UDS, EtOH
Imaging: CTAP
Chronic conditions affecting care: DM
<Siddharth Sutton MD, Resident - Last Filed: 08/28/25 00:16>
*Pulse Oximetry
SaO2: 99
Oxygen Mode of Delivery: Room air
Patient hypoxic: no
*Critical Care Note
Total Time (30-74mins, 75-104mins- exclusive of procedures): Not Applicable
ED Attending Note
<Siddharth Sutton MD, Resident - Last Filed: 08/28/25 00:16>
-
Portions of this chart may have been created with voice recognition software.� Occasional wrong word or��sound alike� substitutions may have occurred due to the inherent limitations of voice recognition software.
<Alphonse Verdugo, DO - Last Filed: 08/27/25 23:04>
ED Attending Note
Patient seen and examined by attending physician: Yes
I performed the substantive portion of visit, reviewed & personally made and approve the management plan that is documented in note by myself or GLORIA.: Yes
I performed a history and physical exam of patient and discussed management with resident, I reviewed resident's note and agree with documented findings and plan of care.: Yes
ED Attending Note:
35-year-old male presents to the ER for evaluation of back pain decreased urine output and labile blood pressure. Patient admittedly has been using preworkout before exercise along with using protein supplementation. He states that his blood
sugars vacillate wildly throughout the day. He was also prescribed lisinopril to take for his blood pressure but is not consistent with taking it as he is afraid that it will make him stop breathing. Patient is a patient of Dr. Guillory'boy and
was supposed to have scheduled an appointment but has not seen her recently. Vital signs reviewed, patient is awake, alert, appears no acute distress, mucous membranes moist, conjunctiva pink, heart regular rate and rhythm no murmurs or ectopy,
lungs are clear to auscultation without wheezes rales rhonchi, abdomen is soft and nontender, extremities without edema, 2+ DP pulses present symmetric bilateral feet, GCS is 15. I discussed with patient all test results. Blood pressure improved
spontaneously with period of observation, however I discussed with patient need to continue taking lisinopril as prescribed as this would help not only with his blood pressure but also as a preventative for diabetic renal disease. I discussed with
patient need to abstain from using preworkout in the future along with limited use of protein supplementation in order to help protect his kidneys. I discussed with him no evidence for acute worrisome infectious process, no kidney stones present.
Patient feeling better while in the ER, no back pain. He states he has been experiencing intermittent chest pain this evening, however his troponin is normal. I discussed with patient need for close outpatient follow-up with both primary care
physician and roving department supervisor, he agrees with this plan and has no questions at the current time.
Discharge Plan
Departure
Patient Disposition: Home (Routine Discharge)
Date of Disposition: 08/28/25
Time of Disposition: 00:08
Patient with high blood pressure during this ER visit?: Yes
Condition: Good
Covid-19: Not Applicable
Discharge Problem:
Back pain
Instructions: Back Pain, BLOOD PRESSURE
Prescriptions:
No Action
diclofenac sodium 75 mg tablet,delayed release (DR/EC)
75 mg PO BID Qty: 20 0RF
gabapentin 300 mg capsule
300 mg PO TID Qty: 30 0RF
Paxlovid 300 mg (150 mg x 2)-100 mg tablets,dose pack
See Rx Instructions .ROUTE .COMPLEX Qty: 30 0RF
Rx Instructions:
take TWO 150 mg tablets of nirmatrelvir with ONE 100 mg tablet of ritonavir twice daily for 5 days
gabapentin 300 mg capsule
300 mg PO TID Qty: 30 0RF
Referrals:
Reji Lambert MD [Family Provider]
Lena Guillory MD [Active, Cardiology]
Activity Restrictions/Additional Instructions:
Recommend close outpatient follow-up with PCP and roving department supervisor (Dr. Guillory)
Return to ED if worsening back pain, chest pain, shortness of breath, fever, or any other acute symptoms
Interventions
Interventions:
*Risk Screen - Suicide Last Done: 08/27/25 19:35
*General Assessment Last Done: 08/27/25 22:29
*Neglect/Abuse Screening Last Done: 08/27/25 19:35
*ED- Fall Risk Assessment Last Done: 08/27/25 21:11
*ED COVID-19 Vaccine History Last Done: 08/27/25 21:11
*ED Influenza Vaccine History Last Done: 08/27/25 21:11
PR-Qvoakq-Qwfbrdqrxn Assessment Last Done: 08/27/25 21:11
ED-Male Genitourinary Assessment Last Done: 08/27/25 21:11
Discharge Date and Time
Print Language: ESTONIAN
[2025-08-27] MEDS: TYLENOL 650 MG PO (21:35)
[2025-08-27] MEDS: NSS 1000 IV (21:35)
[2025-08-27 22:00] VITALS: BP 149/90
[2025-08-27 22:05] LABS: Glucose - Point of Care 106 mg/dl (70-99)
[2025-08-27 22:27] LABS: Lipase 118 U/L (23-300)
[2025-08-27 22:30] LABS: Troponin I < 0.012 ng/ml
[2025-08-27 23:00] VITALS: BP 137/83
[2025-08-27 23:11] LABS: Glucose - Point of Care 95 mg/dl (70-99)
[2025-08-28] VITALS: BP 131/84
== END 2025-08-28 00:34 | disposition home or self-care (01) ==
LOC: EMR 19:33
PROVIDERS: Student in an Organized Health Care Education/Training Program; EMERGENCY PHYSICIAN Emergency Medicine; FAMILY PHYSICIAN Internal Medicine Endocrinology, Diabetes & Metabolism
DX: M54.9 Dorsalgia, unspecified (principal); R00.0 Tachycardia, unspecified; R03.0 Elevated blood-pressure reading, without diagnosis of hypertension; E10.65 Type 1 diabetes mellitus with hyperglycemia; E10.40 Type 1 diabetes mellitus with diabetic neuropathy, unspecified; J45.909 Unspecified asthma, uncomplicated; F90.9 Attention-deficit hyperactivity disorder, unspecified type; F17.290 Nicotine dependence, other tobacco product, uncomplicated; Z79.4 Long term (current) use of insulin; T46.4X6A Underdosing of angiotensin-converting-enzyme inhibitors, initial encounter; Z91.128 Patient's intentional underdosing of medication regimen for other reason; Z83.3 Family history of diabetes mellitus
CPT/HCPCS: 99284; 96360; 74176; 80053; 80306; 81003; 82077; 82962; 83690; 84484; 85025; 93005